=== PATIENT | male | born 1970 | race African-American/Black ===

== ENCOUNTER 2017-07-19 01:15 | Inpatient (IN) | payer OTHER ==
[2017-07-19] MEDS ORDERED: ZOFRAN ODT PO ONE (01:46)
[2017-07-19] MEDS ORDERED: ZOFRAN ODT ONE (01:48)
--- NOTE | 2017-07-19 02:32 | Cat Scan Report ---
FINAL REPORT PROCEDURE: CT HEAD/BRAIN WO CON TECHNIQUE: Computerized tomography of the head was performed without contrast material. HISTORY: Headache. Dizziness. COMPARISON: No prior studies are available for comparison. FINDINGS: Skull and scalp: Normal. Paranasal sinuses: Normal. Ventricles and subarachnoid spaces: Normal. Cerebrum: No evidence of hemorrhage, acute infarction or mass . Cerebellum and brainstem: No evidence of hemorrhage, acute infarction or mass. Vasculature: Normal. Comments: Possible small 3.5 mm sebaceous cyst about the left parietal scalp. IMPRESSION: No CT evidence of acute intracranial pathology. Consider MRI of the brain for further characterization if there is continued clinical concern and patient has no contraindication to MRI.
--- NOTE | 2017-07-19 02:43 | Cat Scan Report ---
FINAL REPORT PROCEDURE: CT CERVICAL SPINE WO CON TECHNIQUE: Computerized tomography of the cervical spine was performed from the skull base to T1 without contrast material. HISTORY: Neck pain. Dizziness. COMPARISON: CT scan of the brain dated same day and time. FINDINGS: C1-2: No significant abnormality. C2-3: No significant abnormality. C3-4: No significant abnormality. C4-5: Slight right paracentral disc bulge. C5-6: Anterior osteophytes. Posterior and uncovertebral osteophytes which cause mild to moderate canal stenosis and foraminal narrowing, more evident on the right. Disc osteophyte complex. C6-7: No significant abnormality. C7-T1: No significant abnormality. Other: Possible area of low-attenuation left thyroid lobe. IMPRESSION: Degenerative changes of the cervical spine without CT evidence of fracture. Possible area of low attenuation in the left thyroid lobe, consider thyroid ultrasound.
--- NOTE | 2017-07-19 08:35 | Emergency Department Report ---
ED General Adult HPI - General Chief complaint: Headache Stated complaint: VOMITING,DIZZY,HEADACHE Time Seen by Provider: 07/19/17 08:30 Source: patient Mode of arrival: Ambulatory Limitations: No Limitations - History of Present Illness Initial comments: Patient apparently complained of chronic neck pain last night. He had a CT of his neck and his head. He also complained of some vomiting and dizziness. He states he is taken his insulin but has felt weak for the last few days. On my encounter he looks somewhat volume depleted. He denies fever or chills. He denies headache. He denies neck pain and stiffness or soreness. He denies photophobia. He states that he still is nauseated but denies abdominal pain. He is an insulin-dependent diabetic. -: Gradual, days(s) Location: neck (neck pain for years) Radiation: non-radiation Severity scale (0 -10): 4 Quality: aching Consistency: intermittent Improves with: none Worsens with: none Associated Symptoms: denies other symptoms, nausea/vomiting, weakness Treatments Prior to Arrival: none - Related Data Home Medications Medication Instructions Recorded Confirmed Last Taken Ibuprofen [Motrin] 400 mg PO Q8H PRN 07/19/17 07/19/17 Unknown Insulin Glargine/Lixisenatide 45 units SUB-Q QAM 07/19/17 07/19/17 Unknown [Soliqua 100 Unit-33 Mcg/ml Pen] Lispro Insulin [Humalog] 2 unit SUB-Q AC 07/19/17 07/19/17 Unknown Allergies Allergy/AdvReac Type Severity Reaction Status Date / Time No Known Allergies Allergy Unverified 07/19/17 01:46 ED Review of Systems ROS: Stated complaint: VOMITING,DIZZY,HEADACHE Other details as noted in HPI Constitutional: weakness. denies: chills, fever Eyes: denies: eye pain, eye discharge, vision change ENT: denies: ear pain, throat pain Respiratory: denies: cough, shortness of breath, wheezing Cardiovascular: denies: chest pain, palpitations Endocrine: no symptoms reported Gastrointestinal: nausea, vomiting. denies: abdominal pain, diarrhea Genitourinary: denies: urgency, dysuria Musculoskeletal: denies: back pain, joint swelling, arthralgia Skin: denies: rash, lesions Neurological: denies: headache, weakness, paresthesias Psychiatric: denies: anxiety, depression Hematological/Lymphatic: denies: easy bleeding, easy bruising ED Past Medical Hx - Past Medical History Previous Medical History?: Yes Hx Diabetes: Yes - Surgical History Past Surgical History?: No - Social History Smoking Status: Never Smoker - Medications Home Medications: Home Medications Medication Instructions Recorded Confirmed Last Taken Type Ibuprofen [Motrin] 400 mg PO Q8H PRN 07/19/17 07/19/17 Unknown History Insulin Glargine/Lixisenatide 45 units SUB-Q QAM 07/19/17 07/19/17 Unknown History [Soliqua 100 Unit-33 Mcg/ml Pen] Lispro Insulin [Humalog] 2 unit SUB-Q AC 07/19/17 07/19/17 Unknown History ED Physical Exam - General Limitations: No Limitations General appearance: alert, in no apparent distress, other (appears dehydrated) - Head Head exam: Present: atraumatic, normocephalic - Eye Eye exam: Present: normal appearance, PERRL, EOMI. Absent: scleral icterus - ENT ENT exam: Present: mucous membranes moist - Neck Neck exam: Present: normal inspection. Absent: tenderness, meningismus - Respiratory Respiratory exam: Present: normal lung sounds bilaterally. Absent: respiratory distress - Cardiovascular Cardiovascular Exam: Present: regular rate, normal rhythm. Absent: systolic murmur, diastolic murmur, rubs, gallop - GI/Abdominal GI/Abdominal exam: Present: soft, normal bowel sounds. Absent: distended, tenderness, guarding, rebound, rigid, organomegaly, mass, bruit, pulsatile mass , hernia - Rectal Rectal exam: Present: deferred - Extremities Exam Extremities exam: Present: normal inspection, full ROM, normal capillary refill. Absent: tenderness, pedal edema, joint swelling, calf tenderness - Back Exam Back exam: Present: normal inspection. Absent: CVA tenderness (R), CVA tenderness (L) - Neurological Exam Neurological exam: Present: alert, oriented X3, CN II-XII intact. Absent: motor sensory deficit - Psychiatric Psychiatric exam: Present: normal affect, normal mood - Skin Skin exam: Present: warm, dry, intact, normal color. Absent: rash ED Course Vital Signs 07/19/17 07/19/17 07/19/17 01:39 08:23 10:10 Temperature 97.8 F Pulse Rate 117 H 104 H 99 H Respiratory 18 18 17 Rate Blood Pressure 129/85 Blood Pressure 142/80 139/72 [Right] O2 Sat by Pulse 99 99 100 Oximetry - Reevaluation(s) Reevaluation #1: She was given IV fluids. He had a substantially elevated anion gap and blood sugar. I ordered an insulin drip. His lactic acid level was also 2.9. I gave him empiric antibiotics after blood cultures. No source of infection has been found. Discussed the case with Dr. Narayan who is admitting the patient for further care and evaluation. 07/19/17 11:02 ED Medical Decision Making - Lab Data Result diagrams: 07/19/17 08:43 07/19/17 10:03 - EKG Data -: EKG Interpreted by Me EKG shows normal: sinus rhythm, axis, intervals, QRS complexes, ST-T waves Rate: normal - EKG Data Interpretation: no acute changes - Radiology Data Radiology results: report reviewed (CT of the head and cervical spine no acute process per radiologist.) interpreted by me: Chest x-ray shows no acute process Critical Care Time: Yes Critical care time in (mins) excluding proc time.: 45 Critical care attestation.: If time is entered above; I have spent that time in minutes in the direct care of this critically ill patient, excluding procedure time. ED Disposition Clinical Impression: DKA (diabetic ketoacidoses) Qualifiers: Diabetes mellitus type: type 1 Diabetes mellitus complication detail: without coma Qualified Code(s): E10.10 - Type 1 diabetes mellitus with ketoacidosis without coma Sepsis Qualifiers: Sepsis type: sepsis due to unspecified organism Qualified Code(s): A41.9 - Sepsis, unspecified organism Disposition: OP ADMIT IP TO THIS HOSP Is pt being admited?: Yes Does the pt Need Aspirin: Yes Condition: Stable Time of Disposition: 11:04
[2017-07-19] MEDS ORDERED: ZOFRAN IV ONE (09:02)
[2017-07-19] MEDS ORDERED: NACL 0.9% 1000 ML 2,000 ML IV ONE (09:02)
[2017-07-19 09:20] LABS: Bilirubin,Urine NEG (Negative); Blood,Urine NEG (Negative); Color,Urine Yellow (Yellow); Mucus,Urine FEW /HPF; Protein,Urine <15 mg/dL mg/dL (Negative); Urobilinogen,Urine < 2.0 mg/dL (<2.0)
[2017-07-19 09:29] LABS: Mean Corpuscular HGB Conc 31 % (32-34); Mean Corpuscular Hemoglobin 26 pg (28-32); Mean Corpuscular Volume 85 fl (84-94); Platelet Count 273 K/mm3 (140-440); Red Cell Distribution Width 13.7 % (13.2-15.2)
[2017-07-19 09:31] LABS: Hematocrit 45.1 % (35.5-45.6); Hemoglobin 13.9 gm/dl (11.8-15.2)
[2017-07-19 09:32] LABS: BUN/Creatinine Ratio 28; Blood Urea Nitrogen 22 mg/dL (9-20); Calcium 9.3 mg/dL (8.4-10.2); Hemolysis Index 42
[2017-07-19 09:34] LABS: Creatine Kinase MB 1.2 ng/mL (0.0-4.0)
[2017-07-19 09:36] LABS: Alanine Aminotransferase 33 units/L (7-56); Albumin 4.3 g/dL (3.9-5)
[2017-07-19 09:48] LABS: Bilirubin,Direct < 0.2 mg/dL (0-0.2)
[2017-07-19 09:49] LABS: INR 0.91 (0.87-1.13)
[2017-07-19 09:50] LABS: Partial Thromboplastin Time 21.9 Sec. (24.2-36.6)
[2017-07-19] MEDS ORDERED: D50W (25GM) Syringe IV PRN ×2 (09:57→10:15)
[2017-07-19] MEDS ORDERED: ZOSYN/NS 4.5GM/100ML 4.5 GM/100 ML VIAL IV NR (10:00)
[2017-07-19] MEDS ORDERED: VANCOMYCIN PHARMACY TO DOSE IV SCH (10:00)
[2017-07-19] MEDS ORDERED: HumuLIN R 100 UNITS in NACL 0.9% 99 ML IV SCH (10:00)
[2017-07-19] MEDS ORDERED: SODIUM CHLORIDE FLUSH SYRINGE 10 ML IV PRN (10:15)
--- NOTE | 2017-07-19 10:25 | History and Physical Report ---
History of Present Illness Chief complaint: i have been vomiting History of present illness: 47M with insulin dependent DM who presents with intractable nausea and vomiting x2 days, cannot keep anything down and states his glucose was going up, therefore he came to the ER. States that am glc averages in 160s, and pm Glc averages in 270s, he denies a hx of htn or hld. He is compliant with his medication and dm diet. 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 denies: smoking, alcohol abuse, prescription drug abuse, IV drug use Family history: diabetes, hypertension Medications and Allergies Allergies Allergy/AdvReac Type Severity Reaction Status Date / Time No Known Allergies Allergy Unverified 07/19/17 01:46 Home Medications Medication Instructions Recorded Confirmed Last Taken Type Ibuprofen [Motrin] 400 mg PO Q8H PRN 07/19/17 07/19/17 Unknown History Insulin Glargine/Lixisenatide 45 units SUB-Q QAM 07/19/17 07/19/17 Unknown History [Soliqua 100 Unit-33 Mcg/ml Pen] Lispro Insulin [Humalog] 2 unit SUB-Q AC 07/19/17 07/19/17 Unknown History Active Meds: Active Medications Acetaminophen (Tylenol) 650 mg PO Q4H PRN PRN Reason: Pain MILD(1-3)/Fever >100.5/GILLETTE Dextrose (D50w (25gm) Syringe) 0 ml IV ONCE PRN PRN Reason: Hypoglycemia Dextrose (D50w (25gm) Syringe) 50 ml IV PRN PRN PRN Reason: Hypoglycemia Enoxaparin Sodium (Lovenox) 40 mg SUB-Q QDAY GUILLERMO Sodium Chloride (Nacl 0.9% 1000 Ml) 2,000 mls @ 999 mls/hr IV BOLUS ONE Stop: 07/19/17 11:02 Last Admin: 07/19/17 09:12 Dose: 999 mls/hr Piperacillin Sod/Tazobactam Sod (Zosyn/Ns 4.5gm/100ml) 4.5 gm in 100 mls @ 200 mls/hr IV ONCE NR Stop: 07/19/17 11:00 Insulin Human Regular 100 (units/ Sodium Chloride) 100 mls @ 1 mls/hr IV TITR GUILLERMO; Protocol Sodium Chloride (Nacl 0.9% 1000 Ml) 1,000 mls @ 125 mls/hr IV DIRECT GUILLERMO Insulin Human Isoph/Insulin Regular (Humulin 70/30) 20 unit SUB-Q BIDDIAB GUILLERMO Insulin Human Lispro (Humalog) 0 unit SUB-Q ACHS GUILLERMO; Protocol Ondansetron HCl (Zofran) 4 mg IV Q8H PRN PRN Reason: Nausea And Vomiting Sodium Chloride (Sodium Chloride Flush Syringe 10 Ml) 10 ml IV BID GUILLERMO Sodium Chloride (Sodium Chloride Flush Syringe 10 Ml) 10 ml IV PRN PRN PRN Reason: LINE FLUSH Vancomycin HCl (Vancomycin Pharmacy To Dose) 1 each IV PKCONSULT GUILLERMO; Protocol Review of Systems All systems: negative (10 point ros is otherwise negative) Constitutional: weakness Gastrointestinal: abdominal pain, nausea, vomiting, no diarrhea Exam - Constitutional Vitals: Temp Pulse Resp BP Pulse Ox 97.8 F 99 H 17 139/72 100 07/19/17 01:39 07/19/17 10:10 07/19/17 10:10 07/19/17 10:10 07/19/17 10:10 General appearance: Present: no acute distress, well-nourished - EENT Eyes: Present: PERRL ENT: hearing intact, clear oral mucosa (dry mm) - Neck Neck: Present: supple, normal ROM - Respiratory Respiratory effort: normal Respiratory: bilateral: CTA - Cardiovascular Heart Sounds: Present: S1 & S2. Absent: rub, click - Extremities Extremities: pulses symmetrical, No edema Peripheral Pulses: within normal limits - Abdominal General gastrointestinal: Present: soft, non-tender, non-distended, normal bowel sounds Male genitourinary: Present: normal - Integumentary Integumentary: Present: clear, warm, dry - Musculoskeletal Musculoskeletal: gait normal, strength equal bilaterally - Psychiatric Psychiatric: appropriate mood/affect, intact judgment & insight - Neurologic Neurologic: CNII-XII intact, moves all extremities Results - Labs CBC & Chem 7: 07/19/17 08:43 07/19/17 18:08 Labs: Laboratory Last Values WBC 14.1 K/mm3 (4.5-11.0) H 07/19/17 08:43 RBC 5.30 M/mm3 (3.65-5.03) H 07/19/17 08:43 Hgb 13.9 gm/dl (11.8-15.2) 07/19/17 08:43 Hct 45.1 % (35.5-45.6) 07/19/17 08:43 MCV 85 fl (84-94) 07/19/17 08:43 MCH 26 pg (28-32) L 07/19/17 08:43 MCHC 31 % (32-34) L 07/19/17 08:43 RDW 13.7 % (13.2-15.2) 07/19/17 08:43 Plt Count 273 K/mm3 (140-440) 07/19/17 08:43 Seg Neutrophils % Churn Driller 07/19/17 08:43 PT 12.7 Sec. (12.2-14.9) 07/19/17 09:14 INR 0.91 (0.87-1.13) 07/19/17 09:14 APTT 21.9 Sec. (24.2-36.6) L 07/19/17 09:14 VBG pH 7.321 (7.320-7.420) 07/19/17 08:43 Sodium 138 mmol/L (137-145) 07/19/17 08:43 Potassium 4.3 mmol/L (3.6-5.0) 07/19/17 08:43 Chloride 96.7 mmol/L (98-107) L 07/19/17 08:43 Carbon Dioxide 19 mmol/L (22-30) L 07/19/17 08:43 Anion Gap 27 mmol/L 07/19/17 08:43 BUN 22 mg/dL (9-20) H 07/19/17 08:43 Creatinine 0.8 mg/dL (0.8-1.5) 07/19/17 08:43 Estimated GFR > 60 ml/min 07/19/17 08:43 BUN/Creatinine Ratio 28 % 07/19/17 08:43 Glucose 421 mg/dL (75-100) H 07/19/17 08:43 POC Glucose 365 (70-105) H 07/19/17 10:08 Lactic Acid 2.90 mmol/L (0.7-2.0) H* 07/19/17 09:08 Calcium 9.3 mg/dL (8.4-10.2) 07/19/17 08:43 Magnesium 1.90 mg/dL (1.7-2.3) 07/19/17 08:43 Total Bilirubin 0.60 mg/dL (0.1-1.2) 07/19/17 08:43 Direct Bilirubin < 0.2 mg/dL (0-0.2) 07/19/17 08:43 Indirect Bilirubin 0.4 mg/dL 07/19/17 08:43 AST 14 units/L (5-40) 07/19/17 08:43 ALT 33 units/L (7-56) 07/19/17 08:43 Alkaline Phosphatase 93 units/L (35-129) 07/19/17 08:43 Total Creatine Kinase 37 units/L (55-170) L 07/19/17 08:43 CK-MB (CK-2) 1.2 ng/mL (0.0-4.0) 07/19/17 08:43 CK-MB (CK-2) Rel Index 3.2 (0-4) 07/19/17 08:43 Troponin T < 0.010 ng/mL (0.00-0.029) 07/19/17 08:43 NT-Pro-B Natriuret Pep 25.45 pg/mL (0-450) 07/19/17 08:43 Total Protein 7.8 g/dL (6.3-8.2) 07/19/17 08:43 Albumin 4.3 g/dL (3.9-5) 07/19/17 08:43 Albumin/Globulin Ratio 1.2 % 07/19/17 08:43 Urine Color Yellow (Yellow) 07/19/17 09:03 Urine Turbidity Clear (Clear) 07/19/17 09:03 Urine pH 5.0 (5.0-7.0) 07/19/17 09:03 Ur Specific [place] 1.030 (1.003-1.030) 07/19/17 09:03 Urine Protein <15 mg/dl mg/dL (Negative) 07/19/17 09:03 Urine Glucose (UA) >=500 mg/dL (Negative) 07/19/17 09:03 Urine Ketones 80 mg/dL (Negative) 07/19/17 09:03 Urine Blood Neg (Negative) 07/19/17 09:03 Urine Nitrite Neg (Negative) 07/19/17 09:03 Urine Bilirubin Neg (Negative) 07/19/17 09:03 Urine Urobilinogen < 2.0 mg/dL (<2.0) 07/19/17 09:03 Ur Leukocyte Esterase Neg (Negative) 07/19/17 09:03 Urine WBC (Auto) 1.0 /HPF (0.0-6.0) 07/19/17 09:03 Urine RBC (Auto) 1.0 /HPF (0.0-6.0) 07/19/17 09:03 Urine Mucus Few /HPF 07/19/17 09:03 Assessment and Plan Assessment and plan: 47-year-old man with no significant past medical history who presents with vomiting dizziness and weakness. CT head is unremarkable CT of the cervical spine shows no acute findings Chest x-ray is negative UA negative Intractable n/v DM gastroparesis? anti-emetics, IVF, NM gastric emptying study in am Sirs Infectious workup is negative, most likely reactive in nature Lactic acidosis Due to hyperglycemia Hyperglycemia/ type 2 diabetes Patient is very hyperglycemic but not currently in DKA will put him on IV fluids , subcutaneous insulins. -Check A1c, dietitian consult and lipid panel Hypertension denies hx of htn The pressure is elevated, we'll hydrate him today and start him on an WEI inhibitor tomorrow if BP still elevated
[2017-07-19 10:42] LABS: BUN/Creatinine Ratio 28; Blood Urea Nitrogen 22 mg/dL (9-20); Calcium 8.8 mg/dL (8.4-10.2); Hemolysis Index 187
[2017-07-19] MEDS ORDERED: NACL 0.9% 1000 ML 1,000 ML IV SCH (11:00)
[2017-07-19] MEDS ORDERED: BABY ASPIRIN PO ONE (11:04)
--- NOTE | 2017-07-19 11:05 | XRay Report ---
AP CHEST: HISTORY: Hypertension AP view of the chest demonstrates a normal mediastinal and cardiac contour with clear lungs and normal bony and soft tissue structures. IMPRESSION: Unremarkable AP chest.
[2017-07-19 11:32] LABS: Chol/HDL Ratio 2.93 %
[2017-07-19 12:40] LABS: Total Cells Counted 100
[2017-07-19 12:42] LABS: Band Neutrophils # (Manual) 0.1 K/mm3; Basophils % (Manual) 0 % (0.0-1.8); Eosinophils % (Manual) 0 % (0.0-4.3); Monocytes % (Manual) 0 % (0.0-7.3)
[2017-07-19 12:43] LABS: Platelet Estimate Consistent w Auto; RBC Morphology Normal
[2017-07-19] MEDS: LOVENOX SUB-Q SCH (12:49)
[2017-07-19] MEDS: ZOFRAN IV PRN (12:49)
[2017-07-19] MEDS: TYLENOL PO PRN ×2 (12:54→19:11)
[2017-07-19] MEDS: HumaLOG SUB-Q SCH ×3 (13:32→18:11)
[2017-07-19 14:24] LABS: BUN/Creatinine Ratio 25; Blood Urea Nitrogen 20 mg/dL (9-20); Calcium 8.9 mg/dL (8.4-10.2); Hemolysis Index 5
[2017-07-19 16:32] LABS: BUN/Creatinine Ratio 23; Blood Urea Nitrogen 21 mg/dL (9-20); Calcium 8.6 mg/dL (8.4-10.2); Hemolysis Index 1
[2017-07-19 18:56] LABS: BUN/Creatinine Ratio 26; Blood Urea Nitrogen 21 mg/dL (9-20); Calcium 8.7 mg/dL (8.4-10.2); Hemolysis Index 1
[2017-07-19 22:19] LABS: BUN/Creatinine Ratio 26; Blood Urea Nitrogen 21 mg/dL (9-20); Calcium 8.5 mg/dL (8.4-10.2); Hemolysis Index 0
[2017-07-20] MEDS: HumaLOG SUB-Q SCH ×8 (01:08→22:00)
[2017-07-20] MEDS: LANTUS SUB-Q SCH ×2 (01:09→21:59)
[2017-07-20 01:21] LABS: BUN/Creatinine Ratio 25; Blood Urea Nitrogen 20 mg/dL (9-20); Calcium 8.4 mg/dL (8.4-10.2); Hemolysis Index 2
[2017-07-20] MEDS: TYLENOL PO PRN ×3 (01:42→23:43)
[2017-07-20] MEDS: SODIUM CHLORIDE FLUSH SYRINGE 10 ML IV SCH ×3 (01:43→23:45)
[2017-07-20] MEDS ORDERED: NACL 0.9% 1000 ML 1,000 ML IV SCH (08:00)
[2017-07-20 08:09] LABS: Basophils % (Auto) 0.3 % (0.0-1.8); Eosinophils % (Auto) 0.1 % (0.0-4.3); Hematocrit 38.4 % (35.5-45.6); Hemoglobin 12.6 gm/dl (11.8-15.2); Lymphocytes # (Auto) 1.6 K/mm3 (1.2-5.4); Lymphocytes % (Auto) 14.8 % (13.4-35.0); Mean Corpuscular HGB Conc 33 % (32-34); Mean Corpuscular Hemoglobin 27 pg (28-32); Mean Corpuscular Volume 83 fl (84-94); Monocytes # (Auto) 0.9 K/mm3 (0.0-0.8); Monocytes % (Auto) 8.6 % (0.0-7.3); Platelet Count 258 K/mm3 (140-440); Red Blood Count 4.66 M/mm3 (3.65-5.03); Red Cell Distribution Width 13.4 % (13.2-15.2)
[2017-07-20 08:34] LABS: BUN/Creatinine Ratio 27; Blood Urea Nitrogen 19 mg/dL (9-20); Calcium 8.7 mg/dL (8.4-10.2); Hemolysis Index 5
[2017-07-20] MEDS: ZOFRAN IV PRN (09:47)
[2017-07-20] MEDS: LOVENOX SUB-Q SCH (09:52)
[2017-07-20 10:13] LABS: BUN/Creatinine Ratio 27; Blood Urea Nitrogen 19 mg/dL (9-20); Calcium 8.8 mg/dL (8.4-10.2); Hemolysis Index 6
[2017-07-20] MEDS ORDERED: MORPHINE IV ONE (12:30)
--- NOTE | 2017-07-20 15:04 | Progress Note ---
Assessment and Plan Assessment and plan: Gastroparesis - Symptomatic treatment, pain control - Gastric emptying study was done and reading is pending, GI consulted Diabetes mellitus type to his hyperglycemia - Patient is on sliding scale and basal insulin - Hemoglobin A1c is 10.4 SIRS - Leukocytosis likely reactive, tachycardia due to vomiting DVT prophylaxis Disposition - Continue inpatient care History Interval history: Patient was seen and evaluated this morning, patient has been complaining intractable nausea, vomiting and abdominal pain overnight. Hospitalist Physical - Physical exam Narrative exam: Not in cardiopulmonary distress. The patient appeared well nourished and normally developed. Vital signs as documented. Head exam is unremarkable. No scleral icterus . Neck is without jugular venous distension, thyromegaly, or carotid bruits. Lungs are clear to auscultation. Cardiac exam reveals regular rate and Rhythm. First and second heart sounds normal. No murmurs, rubs or gallops. Abdominal exam reveals normal bowel sounds, mild tenderness all over . Extremities are nonedematous and both femoral and pedal pulses are normal. MANAGER INVESTIGATIONS: Alert and oriented 3. No focal weakness. - Constitutional Vitals: Temp Pulse Resp BP Pulse Ox 98.3 F 82 19 107/54 99 07/20/17 08:17 07/20/17 08:17 07/20/17 08:17 07/20/17 08:17 07/20/17 08:17 General appearance: Present: no acute distress, well-nourished Results - Labs CBC & Chem 7: 07/20/17 07:40 07/20/17 09:37 Labs: Laboratory Last Values WBC 11.1 K/mm3 (4.5-11.0) H 07/20/17 07:40 RBC 4.66 M/mm3 (3.65-5.03) 07/20/17 07:40 Hgb 12.6 gm/dl (11.8-15.2) 07/20/17 07:40 Hct 38.4 % (35.5-45.6) D 07/20/17 07:40 MCV 83 fl (84-94) L 07/20/17 07:40 MCH 27 pg (28-32) L 07/20/17 07:40 MCHC 33 % (32-34) 07/20/17 07:40 RDW 13.4 % (13.2-15.2) 07/20/17 07:40 Plt Count 258 K/mm3 (140-440) 07/20/17 07:40 Lymph % (Auto) 14.8 % (13.4-35.0) 07/20/17 07:40 [place] % (Auto) 8.6 % (0.0-7.3) H 07/20/17 07:40 Eos % (Auto) 0.1 % (0.0-4.3) 07/20/17 07:40 Baso % (Auto) 0.3 % (0.0-1.8) 07/20/17 07:40 Lymph # 1.6 K/mm3 (1.2-5.4) 07/20/17 07:40 [place] # 0.9 K/mm3 (0.0-0.8) H 07/20/17 07:40 Eos # 0.0 K/mm3 (0.0-0.4) 07/20/17 07:40 Baso # 0.0 K/mm3 (0.0-0.1) 07/20/17 07:40 Add Manual Diff Complete 07/19/17 08:43 Total Counted 100 07/19/17 08:43 Seg Neutrophils % 76.2 % (40.0-70.0) H 07/20/17 07:40 Seg Neuts % (Manual) 99.0 % (40.0-70.0) H 07/19/17 08:43 Band Neutrophils % 1.0 % 07/19/17 08:43 Lymphocytes % (Manual) 0 % (13.4-35.0) L 07/19/17 08:43 Reactive Lymphs % (Man) 0 % 07/19/17 08:43 Monocytes % (Manual) 0 % (0.0-7.3) 07/19/17 08:43 Eosinophils % (Manual) 0 % (0.0-4.3) 07/19/17 08:43 Basophils % (Manual) 0 % (0.0-1.8) 07/19/17 08:43 Metamyelocytes % 0 % 07/19/17 08:43 Myelocytes % 0 % 07/19/17 08:43 Promyelocytes % 0 % 07/19/17 08:43 Blast Cells % 0 % 07/19/17 08:43 Nucleated RBC % Not Reportable 07/19/17 08:43 Seg Neutrophils # 8.4 K/mm3 (1.8-7.7) H 07/20/17 07:40 Seg Neutrophils # Man 14.0 K/mm3 (1.8-7.7) H 07/19/17 08:43 Band Neutrophils # 0.1 K/mm3 07/19/17 08:43 Lymphocytes # (Manual) 0.0 K/mm3 (1.2-5.4) L 07/19/17 08:43 Abs React Lymphs (Man) 0.0 K/mm3 07/19/17 08:43 Monocytes # (Manual) 0.0 K/mm3 (0.0-0.8) 07/19/17 08:43 Eosinophils # (Manual) 0.0 K/mm3 (0.0-0.4) 07/19/17 08:43 Basophils # (Manual) 0.0 K/mm3 (0.0-0.1) 07/19/17 08:43 Metamyelocytes # 0.0 K/mm3 07/19/17 08:43 Myelocytes # 0.0 K/mm3 07/19/17 08:43 Promyelocytes # 0.0 K/mm3 07/19/17 08:43 Blast Cells # 0.0 K/mm3 07/19/17 08:43 WBC Morphology Not Reportable 07/19/17 08:43 Hypersegmented Neuts Not Reportable 07/19/17 08:43 Hyposegmented Neuts Not Reportable 07/19/17 08:43 Hypogranular Neuts Not Reportable 07/19/17 08:43 Smudge Cells Not Reportable 07/19/17 08:43 Toxic Granulation Not Reportable 07/19/17 08:43 Toxic Vacuolation Not Reportable 07/19/17 08:43 Dohle Bodies Not Reportable 07/19/17 08:43 Pelger-Huet Anomaly Not Reportable 07/19/17 08:43 Herb Rods Not Reportable 07/19/17 08:43 Platelet Estimate Consistent w auto 07/19/17 08:43 Clumped Platelets Not Reportable 07/19/17 08:43 Plt Clumps, EDTA Not Reportable 07/19/17 08:43 Large Platelets Not Reportable 07/19/17 08:43 Giant Platelets Not Reportable 07/19/17 08:43 Platelet Satelliting Not Reportable 07/19/17 08:43 Plt Morphology Comment Not Reportable 07/19/17 08:43 RBC Morphology Normal 07/19/17 08:43 Dimorphic RBCs Not Reportable 07/19/17 08:43 Polychromasia Not Reportable 07/19/17 08:43 Hypochromasia Not Reportable 07/19/17 08:43 Poikilocytosis Not Reportable 07/19/17 08:43 Anisocytosis Not Reportable 07/19/17 08:43 Microcytosis Not Reportable 07/19/17 08:43 Macrocytosis Not Reportable 07/19/17 08:43 Spherocytes Not Reportable 07/19/17 08:43 Pappenheimer Bodies Not Reportable 07/19/17 08:43 Sickle Cells Not Reportable 07/19/17 08:43 Target Cells Not Reportable 07/19/17 08:43 Tear Drop Cells Not Reportable 07/19/17 08:43 Ovalocytes Not Reportable 07/19/17 08:43 Helmet Cells Not Reportable 07/19/17 08:43 [place] Bodies Not Reportable 07/19/17 08:43 Muse Rings Not Reportable 07/19/17 08:43 [place] Cells Not Reportable 07/19/17 08:43 Bite Cells Not Reportable 07/19/17 08:43 Crenated Cell Not Reportable 07/19/17 08:43 Elliptocytes Not Reportable 07/19/17 08:43 Acanthocytes (Spur) Not Reportable 07/19/17 08:43 Rouleaux Not Reportable 07/19/17 08:43 Hemoglobin C Crystals Not Reportable 07/19/17 08:43 Schistocytes Not Reportable 07/19/17 08:43 Malaria parasites Not Reportable 07/19/17 08:43 Henry Bodies Not Reportable 07/19/17 08:43 Hem Pathologist Commnt No 07/19/17 08:43 PT 12.7 Sec. (12.2-14.9) 07/19/17 09:14 INR 0.91 (0.87-1.13) 07/19/17 09:14 APTT 21.9 Sec. (24.2-36.6) L 07/19/17 09:14 VBG pH 7.321 (7.320-7.420) 07/19/17 08:43 Sodium 138 mmol/L (137-145) 07/20/17 09:37 Potassium 3.6 mmol/L (3.6-5.0) 07/20/17 09:37 Chloride 99.5 mmol/L (98-107) 07/20/17 09:37 Carbon Dioxide 24 mmol/L (22-30) 07/20/17 09:37 Anion Gap 18 mmol/L 07/20/17 09:37 BUN 19 mg/dL (9-20) 07/20/17 09:37 Creatinine 0.7 mg/dL (0.8-1.5) L 07/20/17 09:37 Estimated GFR > 60 ml/min 07/20/17 09:37 BUN/Creatinine Ratio 27 % 07/20/17 09:37 Glucose 258 mg/dL (75-100) H 07/20/17 09:37 POC Glucose 255 (70-105) H 07/20/17 13:25 Hemoglobin A1c 10.4 % (4-6) H 07/19/17 08:47 Lactic Acid 2.90 mmol/L (0.7-2.0) H* 07/19/17 09:08 Calcium 8.8 mg/dL (8.4-10.2) 07/20/17 09:37 Phosphorus 4.20 mg/dL (2.5-4.5) 07/19/17 10:03 Magnesium 1.90 mg/dL (1.7-2.3) 07/19/17 10:03 Total Bilirubin 0.60 mg/dL (0.1-1.2) 07/19/17 08:43 Direct Bilirubin < 0.2 mg/dL (0-0.2) 07/19/17 08:43 Indirect Bilirubin 0.4 mg/dL 07/19/17 08:43 AST 14 units/L (5-40) 07/19/17 08:43 ALT 33 units/L (7-56) 07/19/17 08:43 Alkaline Phosphatase 93 units/L (35-129) 07/19/17 08:43 Total Creatine Kinase 37 units/L (55-170) L 07/19/17 08:43 CK-MB (CK-2) 1.2 ng/mL (0.0-4.0) 07/19/17 08:43 CK-MB (CK-2) Rel Index 3.2 (0-4) 07/19/17 08:43 Troponin T < 0.010 ng/mL (0.00-0.029) 07/19/17 08:43 NT-Pro-B Natriuret Pep 25.45 pg/mL (0-450) 07/19/17 08:43 Total Protein 7.8 g/dL (6.3-8.2) 07/19/17 08:43 Albumin 4.3 g/dL (3.9-5) 07/19/17 08:43 Albumin/Globulin Ratio 1.2 % 07/19/17 08:43 Triglycerides 69 mg/dL (2-149) 07/19/17 10:03 Cholesterol 220 mg/dL (50-199) H 07/19/17 10:03 LDL Cholesterol Direct 133 mg/dL (50-130) H 07/19/17 10:03 HDL Cholesterol 75 mg/dL (40-59) H 07/19/17 10:03 Cholesterol/HDL Ratio 2.93 % 07/19/17 10:03 Urine Color Yellow (Yellow) 07/19/17 09:03 Urine Turbidity Clear (Clear) 07/19/17 09:03 Urine pH 5.0 (5.0-7.0) 07/19/17 09:03 Ur Specific [place] 1.030 (1.003-1.030) 07/19/17 09:03 Urine Protein <15 mg/dl mg/dL (Negative) 07/19/17 09:03 Urine Glucose (UA) >=500 mg/dL (Negative) 07/19/17 09:03 Urine Ketones 80 mg/dL (Negative) 07/19/17 09:03 Urine Blood Neg (Negative) 07/19/17 09:03 Urine Nitrite Neg (Negative) 07/19/17 09:03 Urine Bilirubin Neg (Negative) 07/19/17 09:03 Urine Urobilinogen < 2.0 mg/dL (<2.0) 07/19/17 09:03 Ur Leukocyte Esterase Neg (Negative) 07/19/17 09:03 Urine WBC (Auto) 1.0 /HPF (0.0-6.0) 07/19/17 09:03 Urine RBC (Auto) 1.0 /HPF (0.0-6.0) 07/19/17 09:03 Urine Mucus Few /HPF 07/19/17 09:03
[2017-07-20] MEDS ORDERED: MORPHINE IV PRN (15:10)
[2017-07-20] MEDS: REGLAN IV SCH ×2 (18:11→23:44)
[2017-07-20] MEDS ORDERED: TORADOL IV PRN (18:56)
[2017-07-21] MEDS: REGLAN IV SCH ×4 (06:32→22:56)
[2017-07-21] MEDS: NACL 0.9% 1000 ML 1,000 ML IV SCH ×2 (07:00→17:58)
[2017-07-21] MEDS: TYLENOL PO PRN (07:13)
[2017-07-21] MEDS: HumaLOG SUB-Q SCH ×7 (07:30→22:52)
--- NOTE | 2017-07-21 07:34 | Nuclear Medicine Report ---
NUCLEAR MEDICINE GASTRIC EMPTYING SCAN HISTORY: Intractable vomiting, gastroparesis, nausea and vomiting. FINDINGS: Anterior scintigraphic images were obtained for 90 minutes following 1 mCi of technetium 99m sulfur colloid in oatmeal. Half life for gastric emptying is within normal limits measuring 72 minutes. No scintigraphic evidence for reflux disease. IMPRESSION: Normal gastric emptying.
--- NOTE | 2017-07-21 09:37 | Gastroenterology Consultation ---
History of Present Illness - Reason for Consult Consult date: 07/21/17 intractable N/V, gastroparesis? Requesting physician: GAIL SEE - History of Present Illness Patient is a 47 y/o male with PMH of insulin dependent DM and cervical disc disease who presented to ED with c/o intractable N/V. GES normal. This morning pt was resting in bed w/o acute distress and family at bedside. He reports continued nausea after eating breakfast but no vomiting this am. Last episode of vomiting was yesterday. Admits to frequent heartburn with regurgitation with early satiety but denies wt loss, abd pain, dysphagia, odynophagia, diarrhea, constipation, or signs of bleeding such as hematemesis, melena, or hematochezia. Takes occasional Ibuprofen. No previous EGD. No Fhx of GI cancers. 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 denies: smoking, alcohol abuse, prescription drug abuse, IV drug use Family history: diabetes, hypertension Medications and Allergies Allergies Allergy/AdvReac Type Severity Reaction Status Date / Time No Known Allergies Allergy Unverified 07/19/17 01:46 Home Medications Medication Instructions Recorded Confirmed Last Taken Type Ibuprofen [Motrin] 400 mg PO Q8H PRN 07/19/17 07/19/17 Unknown History Insulin Glargine/Lixisenatide 45 units SUB-Q QAM 07/19/17 07/19/17 Unknown History [Soliqua 100 Unit-33 Mcg/ml Pen] Lispro Insulin [Humalog] 2 unit SUB-Q AC 07/19/17 07/19/17 Unknown History Active Meds: Active Medications Acetaminophen (Tylenol) 650 mg PO Q4H PRN PRN Reason: Pain MILD(1-3)/Fever >100.5/GILLETTE Last Admin: 07/21/17 07:13 Dose: 650 mg Dextrose (D50w (25gm) Syringe) 50 ml IV PRN PRN PRN Reason: Hypoglycemia Enoxaparin Sodium (Lovenox) 40 mg SUB-Q QDAY GUILLERMO Last Admin: 07/20/17 09:52 Dose: 40 mg Sodium Chloride (Nacl 0.9% 1000 Ml) 1,000 mls @ 125 mls/hr IV DIRECT [facility] Last Admin: 07/21/17 07:00 Dose: 125 mls/hr Insulin Glargine (Lantus) 30 units SUB-Q QHS [facility] Last Admin: 07/20/17 21:59 Dose: 30 units Insulin Human Lispro (Humalog) 0 unit SUB-Q ACHS [facility]; Protocol Last Admin: 07/20/17 22:00 Dose: 4 unit Insulin Human Lispro (Humalog) 10 unit SUB-Q TID [facility] Last Admin: 07/20/17 22:00 Dose: 10 unit Ketorolac Tromethamine (Toradol) 30 mg IV Q6H PRN PRN Reason: Pain, Moderate (4-6) Stop: 07/25/17 18:55 Metoclopramide HCl (Reglan) 10 mg IV Q6H [facility] Last Admin: 07/21/17 06:32 Dose: 10 mg Morphine Sulfate (Morphine) 2 mg IV Q4H PRN PRN Reason: Pain, Moderate (4-6) Ondansetron HCl (Zofran) 4 mg IV Q8H PRN PRN Reason: Nausea And Vomiting Last Admin: 07/20/17 09:47 Dose: 4 mg Sodium Chloride (Sodium Chloride Flush Syringe 10 Ml) 10 ml IV BID [facility] Last Admin: 07/20/17 23:45 Dose: 10 ml Sodium Chloride (Sodium Chloride Flush Syringe 10 Ml) 10 ml IV PRN PRN PRN Reason: LINE FLUSH Review of Systems - Review of Systems All systems: negative Gastrointestinal: nausea, vomiting, early satiety, heartburn, other ( regurgitation) Exam - Constitutional Vital Signs: Temp Pulse Resp BP Pulse Ox 98.5 F 71 20 124/71 98 07/21/17 07:35 07/21/17 07:35 07/21/17 07:35 07/21/17 07:35 07/21/17 07:35 General appearance: no acute distress, well-nourished - EENT Eyes: PERRL, EOM intact ENT: hearing intact - Respiratory Respiratory: bilateral: CTA - Cardiovascular Rhythm: regular Heart Sounds: Present: S1 & S2 - Gastrointestinal General gastrointestinal: Present: soft, non-tender, non-distended, normal bowel sounds - Integumentary Integumentary: Present: warm, dry - Neurologic Neurological: alert and oriented x3 - Labs CBC & Chem 7: 07/20/17 07:40 07/20/17 09:37 Lab Results: Laboratory Results - last 24 hr 07/20/17 07/20/17 07/20/17 09:37 13:25 16:28 Sodium 138 Potassium 3.6 Chloride 99.5 Carbon Dioxide 24 Anion Gap 18 BUN 19 Creatinine 0.7 L Estimated GFR > 60 BUN/Creatinine Ratio 27 Glucose 258 H POC Glucose 255 H 152 H Calcium 8.8 07/20/17 07/21/17 21:19 05:57 Sodium Potassium Chloride Carbon Dioxide Anion Gap BUN Creatinine Estimated GFR BUN/Creatinine Ratio Glucose POC Glucose 308 H 111 H Calcium Assessment and Plan 1.intractable N/V 2.heartburn 3.regurgitation 4.early satiety 5.h/o insulin dependent DM -GES normal -etiology unclear- most likely due to poor glycemic control vs other GI pathology -will schedule for EGD in am -NPO after MN -start on PPI -limit narcotics -continue supportive care with anti-emetics -will follow
[2017-07-21] MEDS: LOVENOX SUB-Q SCH (10:06)
[2017-07-21] MEDS: SODIUM CHLORIDE FLUSH SYRINGE 10 ML IV SCH ×2 (10:10→23:07)
[2017-07-21] MEDS: PROTONIX IV SCH (13:34)
--- NOTE | 2017-07-21 13:35 | Progress Note ---
Assessment and Plan Assessment and plan: Gastroparesis - Symptomatic treatment, pain control - Gastric emptying study was done and normal - GI is going to do EGD tomorrow Diabetes mellitus type to his hyperglycemia - Patient is on sliding scale and basal insulin - Hemoglobin A1c is 10.4 SIRS - Leukocytosis likely reactive, tachycardia due to vomiting DVT prophylaxis Disposition - Will be discharged tomorrow after EGD History Interval history: Patient was seen and evaluated this morning, patient's abdominal pain, nausea, and vomiting subsided. Hospitalist Physical - Physical exam Narrative exam: Not in cardiopulmonary distress. The patient appeared well nourished and normally developed. Vital signs as documented. Head exam is unremarkable. No scleral icterus . Neck is without jugular venous distension, thyromegaly, or carotid bruits. Lungs are clear to auscultation. Cardiac exam reveals regular rate and Rhythm. First and second heart sounds normal. No murmurs, rubs or gallops. Abdominal exam reveals normal bowel sounds, mild tenderness all over . Extremities are nonedematous and both femoral and pedal pulses are normal. PV DESIGN ENGINEER: Alert and oriented 3. No focal weakness. - Constitutional Vitals: Temp Pulse Resp BP Pulse Ox 98.5 F 71 20 124/71 98 07/21/17 07:35 07/21/17 07:35 07/21/17 07:35 07/21/17 07:35 07/21/17 07:35 General appearance: Present: no acute distress, well-nourished Results - Labs CBC & Chem 7: 07/20/17 07:40 07/20/17 09:37 Labs: Laboratory Last Values WBC 11.1 K/mm3 (4.5-11.0) H 07/20/17 07:40 RBC 4.66 M/mm3 (3.65-5.03) 07/20/17 07:40 Hgb 12.6 gm/dl (11.8-15.2) 07/20/17 07:40 Hct 38.4 % (35.5-45.6) D 07/20/17 07:40 MCV 83 fl (84-94) L 07/20/17 07:40 MCH 27 pg (28-32) L 07/20/17 07:40 MCHC 33 % (32-34) 07/20/17 07:40 RDW 13.4 % (13.2-15.2) 07/20/17 07:40 Plt Count 258 K/mm3 (140-440) 07/20/17 07:40 Lymph % (Auto) 14.8 % (13.4-35.0) 07/20/17 07:40 Caroline % (Auto) 8.6 % (0.0-7.3) H 07/20/17 07:40 Eos % (Auto) 0.1 % (0.0-4.3) 07/20/17 07:40 Baso % (Auto) 0.3 % (0.0-1.8) 07/20/17 07:40 Lymph # 1.6 K/mm3 (1.2-5.4) 07/20/17 07:40 Caroline # 0.9 K/mm3 (0.0-0.8) H 07/20/17 07:40 Eos # 0.0 K/mm3 (0.0-0.4) 07/20/17 07:40 Baso # 0.0 K/mm3 (0.0-0.1) 07/20/17 07:40 Add Manual Diff Complete 07/19/17 08:43 Total Counted 100 07/19/17 08:43 Seg Neutrophils % 76.2 % (40.0-70.0) H 07/20/17 07:40 Seg Neuts % (Manual) 99.0 % (40.0-70.0) H 07/19/17 08:43 Band Neutrophils % 1.0 % 07/19/17 08:43 Lymphocytes % (Manual) 0 % (13.4-35.0) L 07/19/17 08:43 Reactive Lymphs % (Man) 0 % 07/19/17 08:43 Monocytes % (Manual) 0 % (0.0-7.3) 07/19/17 08:43 Eosinophils % (Manual) 0 % (0.0-4.3) 07/19/17 08:43 Basophils % (Manual) 0 % (0.0-1.8) 07/19/17 08:43 Metamyelocytes % 0 % 07/19/17 08:43 Myelocytes % 0 % 07/19/17 08:43 Promyelocytes % 0 % 07/19/17 08:43 Blast Cells % 0 % 07/19/17 08:43 Nucleated RBC % Not Reportable 07/19/17 08:43 Seg Neutrophils # 8.4 K/mm3 (1.8-7.7) H 07/20/17 07:40 Seg Neutrophils # Man 14.0 K/mm3 (1.8-7.7) H 07/19/17 08:43 Band Neutrophils # 0.1 K/mm3 07/19/17 08:43 Lymphocytes # (Manual) 0.0 K/mm3 (1.2-5.4) L 07/19/17 08:43 Abs React Lymphs (Man) 0.0 K/mm3 07/19/17 08:43 Monocytes # (Manual) 0.0 K/mm3 (0.0-0.8) 07/19/17 08:43 Eosinophils # (Manual) 0.0 K/mm3 (0.0-0.4) 07/19/17 08:43 Basophils # (Manual) 0.0 K/mm3 (0.0-0.1) 07/19/17 08:43 Metamyelocytes # 0.0 K/mm3 07/19/17 08:43 Myelocytes # 0.0 K/mm3 07/19/17 08:43 Promyelocytes # 0.0 K/mm3 07/19/17 08:43 Blast Cells # 0.0 K/mm3 07/19/17 08:43 WBC Morphology Not Reportable 07/19/17 08:43 Hypersegmented Neuts Not Reportable 07/19/17 08:43 Hyposegmented Neuts Not Reportable 07/19/17 08:43 Hypogranular Neuts Not Reportable 07/19/17 08:43 Smudge Cells Not Reportable 07/19/17 08:43 Toxic Granulation Not Reportable 07/19/17 08:43 Toxic Vacuolation Not Reportable 07/19/17 08:43 Dohle Bodies Not Reportable 07/19/17 08:43 Pelger-Huet Anomaly Not Reportable 07/19/17 08:43 Herb Rods Not Reportable 07/19/17 08:43 Platelet Estimate Consistent w auto 07/19/17 08:43 Clumped Platelets Not Reportable 07/19/17 08:43 Plt Clumps, EDTA Not Reportable 07/19/17 08:43 Large Platelets Not Reportable 07/19/17 08:43 Giant Platelets Not Reportable 07/19/17 08:43 Platelet Satelliting Not Reportable 07/19/17 08:43 Plt Morphology Comment Not Reportable 07/19/17 08:43 RBC Morphology Normal 07/19/17 08:43 Dimorphic RBCs Not Reportable 07/19/17 08:43 Polychromasia Not Reportable 07/19/17 08:43 Hypochromasia Not Reportable 07/19/17 08:43 Poikilocytosis Not Reportable 07/19/17 08:43 Anisocytosis Not Reportable 07/19/17 08:43 Microcytosis Not Reportable 07/19/17 08:43 Macrocytosis Not Reportable 07/19/17 08:43 Spherocytes Not Reportable 07/19/17 08:43 Pappenheimer Bodies Not Reportable 07/19/17 08:43 Sickle Cells Not Reportable 07/19/17 08:43 Target Cells Not Reportable 07/19/17 08:43 Tear Drop Cells Not Reportable 07/19/17 08:43 Ovalocytes Not Reportable 07/19/17 08:43 Helmet Cells Not Reportable 07/19/17 08:43 Clements-Aneth Bodies Not Reportable 07/19/17 08:43 [place] Rings Not Reportable 07/19/17 08:43 [place] Cells Not Reportable 07/19/17 08:43 Bite Cells Not Reportable 07/19/17 08:43 Crenated Cell Not Reportable 07/19/17 08:43 Elliptocytes Not Reportable 07/19/17 08:43 Acanthocytes (Spur) Not Reportable 07/19/17 08:43 Rouleaux Not Reportable 07/19/17 08:43 Hemoglobin C Crystals Not Reportable 07/19/17 08:43 Schistocytes Not Reportable 07/19/17 08:43 Malaria parasites Not Reportable 07/19/17 08:43 Henry Bodies Not Reportable 07/19/17 08:43 Hem Pathologist Commnt No 07/19/17 08:43 PT 12.7 Sec. (12.2-14.9) 07/19/17 09:14 INR 0.91 (0.87-1.13) 07/19/17 09:14 APTT 21.9 Sec. (24.2-36.6) L 07/19/17 09:14 VBG pH 7.321 (7.320-7.420) 07/19/17 08:43 Sodium 138 mmol/L (137-145) 07/20/17 09:37 Potassium 3.6 mmol/L (3.6-5.0) 07/20/17 09:37 Chloride 99.5 mmol/L (98-107) 07/20/17 09:37 Carbon Dioxide 24 mmol/L (22-30) 07/20/17 09:37 Anion Gap 18 mmol/L 07/20/17 09:37 BUN 19 mg/dL (9-20) 07/20/17 09:37 Creatinine 0.7 mg/dL (0.8-1.5) L 07/20/17 09:37 Estimated GFR > 60 ml/min 07/20/17 09:37 BUN/Creatinine Ratio 27 % 07/20/17 09:37 Glucose 258 mg/dL (75-100) H 07/20/17 09:37 POC Glucose 321 (70-105) H 07/21/17 11:26 Hemoglobin A1c 10.4 % (4-6) H 07/19/17 08:47 Lactic Acid 2.90 mmol/L (0.7-2.0) H* 07/19/17 09:08 Calcium 8.8 mg/dL (8.4-10.2) 07/20/17 09:37 Phosphorus 4.20 mg/dL (2.5-4.5) 07/19/17 10:03 Magnesium 1.90 mg/dL (1.7-2.3) 07/19/17 10:03 Total Bilirubin 0.60 mg/dL (0.1-1.2) 07/19/17 08:43 Direct Bilirubin < 0.2 mg/dL (0-0.2) 07/19/17 08:43 Indirect Bilirubin 0.4 mg/dL 07/19/17 08:43 AST 14 units/L (5-40) 07/19/17 08:43 ALT 33 units/L (7-56) 07/19/17 08:43 Alkaline Phosphatase 93 units/L (35-129) 07/19/17 08:43 Total Creatine Kinase 37 units/L (55-170) L 07/19/17 08:43 CK-MB (CK-2) 1.2 ng/mL (0.0-4.0) 07/19/17 08:43 CK-MB (CK-2) Rel Index 3.2 (0-4) 07/19/17 08:43 Troponin T < 0.010 ng/mL (0.00-0.029) 07/19/17 08:43 NT-Pro-B Natriuret Pep 25.45 pg/mL (0-450) 07/19/17 08:43 Total Protein 7.8 g/dL (6.3-8.2) 07/19/17 08:43 Albumin 4.3 g/dL (3.9-5) 07/19/17 08:43 Albumin/Globulin Ratio 1.2 % 07/19/17 08:43 Triglycerides 69 mg/dL (2-149) 07/19/17 10:03 Cholesterol 220 mg/dL (50-199) H 07/19/17 10:03 LDL Cholesterol Direct 133 mg/dL (50-130) H 07/19/17 10:03 HDL Cholesterol 75 mg/dL (40-59) H 07/19/17 10:03 Cholesterol/HDL Ratio 2.93 % 07/19/17 10:03 Urine Color Yellow (Yellow) 07/19/17 09:03 Urine Turbidity Clear (Clear) 07/19/17 09:03 Urine pH 5.0 (5.0-7.0) 07/19/17 09:03 Ur Specific [place] 1.030 (1.003-1.030) 07/19/17 09:03 Urine Protein <15 mg/dl mg/dL (Negative) 07/19/17 09:03 Urine Glucose (UA) >=500 mg/dL (Negative) 07/19/17 09:03 Urine Ketones 80 mg/dL (Negative) 07/19/17 09:03 Urine Blood Neg (Negative) 07/19/17 09:03 Urine Nitrite Neg (Negative) 07/19/17 09:03 Urine Bilirubin Neg (Negative) 07/19/17 09:03 Urine Urobilinogen < 2.0 mg/dL (<2.0) 07/19/17 09:03 Ur Leukocyte Esterase Neg (Negative) 07/19/17 09:03 Urine WBC (Auto) 1.0 /HPF (0.0-6.0) 07/19/17 09:03 Urine RBC (Auto) 1.0 /HPF (0.0-6.0) 07/19/17 09:03 Urine Mucus Few /HPF 07/19/17 09:03
[2017-07-21] MEDS: LANTUS SUB-Q SCH (22:51)
[2017-07-22] MEDS: NACL 0.9% 1000 ML 1,000 ML IV SCH ×2 (01:58→08:51)
[2017-07-22] MEDS: REGLAN IV SCH ×2 (04:18→11:45)
[2017-07-22] MEDS: HumaLOG SUB-Q SCH ×4 (07:50→15:06)
[2017-07-22] MEDS ORDERED: WATER FOR IRRIG STERILE IR ONE (08:14)
[2017-07-22 08:19] LABS: INR 0.89 (0.87-1.13)
--- NOTE | 2017-07-22 09:08 | Anesthesia Consultation ---
Anesthesia Consult and Med Hx Date of service: 07/22/17 - Airway Anesthetic Teeth Evaluation: Poor (broken teeth in the back) ROM Head & Neck: Adequate Mental/Hyoid Distance: Adequate Mallampati Class: Class II Intubation Access Assessment: Probably Good - Pre-Operative Health Status ASA Pre-Surgery Classification: ASA2 Proposed Anesthetic Plan: MAC - Central Nervous System Hx Seizures: No CVA: No Hx Back Pain: Yes (cervical disc) Hx Psychiatric Problems: No - Gastrointestinal Hx Gastroesophageal Reflux Disease: Yes (N&V, abdominal pain) - Endocrine Hx Insulin Dependent Diabetes: Yes - Other Systems Hx Cancer: No
--- NOTE | 2017-07-22 09:08 | Anesthesia Day of Surgery ---
Anesthesia Day of Surgery - Day of Surgery Patient Examined: Yes Patient H&P Reviewed: Yes Patient is NPO: Yes
[2017-07-22] MEDS ORDERED: DIPRIVAN 10 MG/ML IV ONE ×2 (09:32)
--- NOTE | 2017-07-22 09:55 | Operative Report ---
Operative Report Operative Report: Date of procedure: 07/22/2017 Procedure: Esophagogastroduodenoscopy with biopsies for H. pylori. Preprocedure diagnosis: Recurrent vomiting, suspected gastroparesis. Rule out peptic disease. Post procedure diagnosis: Bile gastritis. No evidence of gastric outlet obstruction or ulcers. Endoscopist: Dr. Zhao Anesthesia: Monitored anesthesia care per anesthesia department Medications: Propofol per anesthesia Estimated blood loss: 0 After careful discussion of the nature and purpose of the procedure as well as details the technique risks benefits and alternatives consent was obtained. The patient was placed in the left lateral decubitus position and medicated per anesthesia. The tip of the [employer] EQ 570 video scope was passed per orum under direct vision into the esophagus and advanced into the stomach and descending duodenum. The descending duodenum the duodenal bulb and pylorus were symmetrical and normal. The scope was withdrawn into the stomach and the stomach then gently insufflated with air. The antrum revealed some retained bile and patchy diffuse erythema. Biopsies were taken for H. pylori in the prepyloric area. The stomach was further insufflated and the scope was then retroflexed and partially withdrawn. The cardia, fundus, and body of the stomach were easily distensible and revealed some retained bile but otherwise were within normal limits.The scope was then withdrawn in the forward position. The esophagogastric junction was at 0 centimeters. The esophageal body was normal throughout. The procedure was was well tolerated and the patient was observed in recovery. Impressions: Diffuse mild bile gastritis with no evidence of outlet obstruction or peptic disease. Plan: Await results of pathology. Continue PPI therapy. Advance diet as tolerated with small feedings. Electronically signed: Tan Zhao MD
[2017-07-22] MEDS: TYLENOL PO PRN (11:44)
[2017-07-22] MEDS: LOVENOX SUB-Q SCH (11:44)
[2017-07-22] MEDS: PROTONIX IV SCH (11:44)
[2017-07-22] MEDS: SODIUM CHLORIDE FLUSH SYRINGE 10 ML IV SCH (11:56)
--- NOTE | 2017-07-22 13:27 | Discharge Summary ---
Providers - Providers Date of Admission: 07/19/17 10:15 Attending physician: GAIL SEE MD 07/19/17 09:57 Consult to Case Management [CONS] Routine Services Needed at Discharge: Other Notified:: copy given to 07/19/17 10:15 Consult to Dietitian/Nutrition [CONS] Routine Physician Instructions: Reason For Exam: Reason for Consult: Diet education 07/20/17 15:06 Consult to Physician [CONS] Routine Comment: TAMY Consulting Provider: VL[facility] Physician Instructions: CALLED @ 1525 [phone]([facility]) Reason For Exam: gastroparesis Primary care physician: RESEARCH ENVIRONMENTAL ENGINEER Hospitalization Reason for admission: Intractable nausea and vomiting, DM with hyperglycemia Condition: Stable Procedures: EGD showed diffuse bile gastritis Hospital course: 47M with insulin dependent DM who presents with intractable nausea and vomiting x2 days, cannot keep anything down and states his glucose was going up, therefore he came to the ER. States that am glc averages in 160s, and pm Glc averages in 270s, he denies a hx of htn or hld. He is compliant with his medication and dm diet. no diarrhea, has abdominal pain and heart burn after vomiting, denies hematemesis, denies fevers, dysuria or chills. Patient was admitted to the floor for the management of gastroparesis, and DM with hyperglycemia. Patient was managed appropriately for gastroparesis and DM. EGD was done and showed bile gastritis and patient was given protonix and reglan. Patient's abdominal pain subsided. Nausea and vomiting subsided and discharge home in a stable condition. Patient was given appropriate medication script and discharge home. Disposition: DC-01 TO HOME OR SELFCARE - Discharge Diagnoses (1) Gastroparesis Status: Acute (2) Gastroparesis due to DM Status: Acute (3) Nausea & vomiting Status: Acute (4) Diabetes mellitus with hyperglycemia Status: Chronic Qualifiers: Diabetes mellitus type: type 2 Core Measure Documentation - Palliative Care Palliative Care/ Comfort Measures: Not Applicable - Core Measures Any of the following diagnoses?: none Exam - Physical Exam Narrative exam: Not in cardiopulmonary distress. The patient appeared well nourished and normally developed. Vital signs as documented. Head exam is unremarkable. No scleral icterus . Neck is without jugular venous distension, thyromegaly, or carotid bruits. Lungs are clear to auscultation. Cardiac exam reveals regular rate and Rhythm. First and second heart sounds normal. No murmurs, rubs or gallops. Abdominal exam reveals normal bowel sounds, mild tenderness all over . Extremities are nonedematous and both femoral and pedal pulses are normal. SENIOR COGNOS DEVELOPER: Alert and oriented 3. No focal weakness. - Constitutional Vitals: Temp Pulse Resp BP Pulse Ox 98.5 F 74 13 133/80 97 07/22/17 09:49 07/22/17 10:04 07/22/17 10:04 07/22/17 10:04 07/22/17 10:04 Plan Activity: no restrictions Weight Bearing Status: Full Weight Bearing Diet: diabetic Follow up with: PRIMARY CARE, [Primary Care Provider] - 7 Days Forms: Work/School Release Form Prescriptions: Insulin Glargine/Lixisenatide [Soliqua 100 Unit-33 Mcg/ml Pen] 45 units SUB-Q QAM #1 insuln.pen Lispro Insulin [Humalog] 2 unit SUB-Q AC #1 units Metoclopramide [Reglan TAB] 10 mg PO TID #30 tab Pantoprazole [Protonix TAB] 40 mg PO DAILY #30 tablet
--- NOTE | 2017-07-22 13:29 | Post Anesthesia Evaluation ---
- Post Anesthesia Evaluation Patient Participated: Yes Airway Patent: Yes Stable Respiratory Function: Yes Nausea/Vomiting: No Temp > 96.8F: Yes Pain Manageable: Yes Adequeate Hydration: Yes Anesthesia Complications: No
[2017-07-22] MEDS ORDERED: NORCO 5/325 PO ONE (15:00)
[2017-07-22 15:45] VITALS: BP 134/83
[2017-07-23] MEDS ORDERED: PROTONIX PO SCH (10:00)
== END 2017-07-22 17:00 | disposition home or self-care (01) | DRG 74 ==
LOC: ED 01:15 → 3A 10:15
PROVIDERS: ADMIT Internal Medicine; ATTEND Internal Medicine
PROC: 0DB68ZX Excision of Stomach, Via Natural or Artificial Opening Endoscopic, Diagnostic (ICD-10-PCS; principal; 2017-07-22)
DX: E11.43 Type 2 diabetes mellitus with diabetic autonomic (poly)neuropathy (principal); R65.10 Systemic inflammatory response syndrome (SIRS) of non-infectious origin without acute organ dysfunction; K31.84 Gastroparesis; K29.60 Other gastritis without bleeding; I10 Essential (primary) hypertension; E11.65 Type 2 diabetes mellitus with hyperglycemia; B96.81 Helicobacter pylori [H. pylori] as the cause of diseases classified elsewhere; R68.81 Early satiety; M54.2 Cervicalgia; Z79.4 Long term (current) use of insulin; Z83.3 Family history of diabetes mellitus; Z82.49 Family history of ischemic heart disease and other diseases of the circulatory system
CPT/HCPCS: 36415; 70450; 71045; 72125; 78264; 80048; 80061; 80074; 81001; 82140; 82550; 82553; 82805; 82962; 83036; 83735; 83880; 84100; 84484; 85007; 85025; 85610; 85730; 87040; 87086; 88305; 88342; 93005; 93010; 96365; 96375; 99291; A9541; C9113; J1650; J1815; J2270; J2405; J2543; J2704; J2765; J7030; Q0162